=== PATIENT | male | born 1950 | race Caucasian/White ===

== ENCOUNTER 2016-10-24 09:25 | Emergency (ER) | payer OTHER ==
[2016-10-24 10:06] VITALS: BP 155/92; PULSE 85; RESP 18; TEMP 97.9; O2SAT 95
--- NOTE | 2016-10-24 10:33 | UCPHY ---
H & P Time Seen by Provider: 10/24/16 10:21 Patient Type: New HPI/ROS: This patient presents with a chief complaint of right foot pain which she noticed for the 1st time yesterday. He localizes the pain to the medial aspect of the foot. The pain is present primarily when walking. He denies fever or constitutional symptoms. He denies any motor or sensory dysfunction. The patient has had 2 separate surgeries on this foot to fuse the tarsal bones. His 1st procedure was at the age of 19 and the more recent 1 was several years ago. Smoking Status: Never smoked Physical Exam: This is a well-developed well-nourished male who is in no acute distress. He is alert, lucid and has a normal mental status. Examination of the right foot reveals minimal tenderness medially and overlying the gabriella and no swelling. There is some minor erythema just inferior to the medial malleolus but the patient says that this is been present for a long period of time. CMS is intact Constitutional: Initial Vital Signs Temperature (C) 36.6 C 10/24/16 09:45 Heart Rate 85 10/24/16 09:45 Respiratory Rate 18 10/24/16 09:45 Blood Pressure 155/92 H 10/24/16 09:45 O2 Sat (%) 95 10/24/16 09:45 O2 Delivery Mode Room Air Allergies/Adverse Reactions: No Known Allergies Allergy (Verified 10/24/16 09:45) Home Medications: Medication Instructions Recorded Lansoprazole [Prevacid] 15 mg PO BID 09/20/12 celeCOXIB [Celebrex] 10/14/13 Htn Med 10/24/16 TESTOSTERONE 10/24/16 Medical Decision Making - Diagnostics Imaging: X-rays of the foot reveals multiple ron and also 3 screws present in the midfoot. The ankle joint itself is relatively normal but the tarsal bones are all pretty much fused. See nothing acute that would explain this patient's pain. Differential Diagnosis: I have no explanation for this patient's pain currently but do not believe that it is related to a infectious process nor a neurovascular 1. It was suggested that he follow up with the orthopedist that did his surgeries if symptoms have not resolved in a reasonable amount of time. Departure - Departure Disposition: Home, Routine, Self-Care Clinical Impression: Right foot pain Condition: Good Instructions: Arthralgia (ED) Additional Instructions: If the pain your foot has not improved in 2 or 3 days or if it is not resolved in 5-7 days you should see the orthopedist who did your surgery. If the meantime the pain is worsening or the area of redness expands or if you develop a fever you should be seen right away. Apply heat to the area of pain several times daily and keep her foot elevated as much as possible. - PQRS PQRS Measurement: Not applicable
--- NOTE | 2016-10-24 10:56 | DX ---
Right Ankle Series, 3 Views History: Right ankle pain in a 66-year-old male with a history of foot and ankle surgery 15 years ago . Prior studies are not available for comparison. There is no report of recent specific trauma. Findings: A fracture or other acute osseous abnormality is not identified. Postoperative changes are noted with talocalcaneal fusion with multiple screws and ron positioned. The bone alignment is no rmal. The ankle mortise has a normal contour. Soft tissues are unremarkable. Impression: Postoperative changes of bony fusion with no acute abnormality identified.
== END 2016-10-24 10:47 | disposition home or self-care (01) ==
LOC: CED 09:25
DX: M79.671 Pain in right foot (principal); Z96.9 Presence of functional implant, unspecified
CPT/HCPCS: 73610; G0463; 99203-PO

== ENCOUNTER → 2017-02-01 | Outpatient (CLI) | payer OTHER | LOC: FIMAGING 08:40 | PROVIDERS: ATTEND Family Medicine | DX: M51.36 Other intervertebral disc degeneration, lumbar region (principal); M51.86 Other intervertebral disc disorders, lumbar region; M12.88 Other specific arthropathies, not elsewhere classified, other specified site; M99.73 Connective tissue and disc stenosis of intervertebral foramina of lumbar region; M48.06 Spinal stenosis, lumbar region ==

== ENCOUNTER → 2017-02-15 | Outpatient (CLI) | payer OTHER, BC | LOC: CIMAGING 10:40 | PROVIDERS: ATTEND Physical Medicine & Rehabilitation Neuromuscular Medicine | DX: M54.31 Sciatica, right side (principal); M54.32 Sciatica, left side; M43.16 Spondylolisthesis, lumbar region; M51.36 Other intervertebral disc degeneration, lumbar region | CPT/HCPCS: 72114-PO ==